=== PATIENT | female | born 1975 | race Caucasian/White ===

== ENCOUNTER 2019-01-16 17:16 | Emergency (ER) | payer SELFPAY ==
--- NOTE | 2019-01-16 20:59 | ED ---
Head Injury - HPI Summary HPI Summary: Patient is a 43 y/o female who presents to the ED s/p head injury. 5 days ago she fell backwards and hit the back of her head on a wall. Since then patient c/ o PEREA that radiates to her left shoulder, photophobia, difficulty concentrating, intermittent paresthesia of her extremities, neck pain, and neck swelling. Patient states her neck pain is worse with palpation and movement. She also c/o sinus congestion and drainage. Her current pain is rated a 2/10 in severity. She denies any prior hx of concussion. - History Of Current Complaint Chief Complaint: EDHeadInjury Stated Complaint: DISORIENTED/NECK FEELS SWOLLEN PER PT Time Seen by Provider: 01/16/19 17:31 Hx Obtained From: Patient Mechanism Of Injury: Other - fell backwards into wall Onset/Duration: Started Days Ago - 5, Still Present Severity Currently: Mild Pain Intensity: 2 Pain Scale Used: 0-10 Numeric Location: Discrete At: - back of head Aggravating Factor(s): Movement, Other: - palpation Associated Signs And Symptoms: Neck Pain, Swelling - neck, Visual Changes - photophobia - Allergies/Home Medications Allergies/Adverse Reactions: Allergies Allergy/AdvReac Type Severity Reaction Status Date / Time No Known Allergies Allergy Verified 01/16/19 17:30 PMH/Surg Hx/FS Hx/Imm Hx Endocrine/Hematology History: Denies: Hx Diabetes Cardiovascular History: Denies: Hx Hypertension - Cancer History Hx Chemotherapy: No Hx Radiation Therapy: No - Surgical History Surgery Procedure, Year, and Place: BREAST REDUCTION Infectious Disease History: No Infectious Disease History: Denies: Traveled Outside the [place] in Last 30 Days - Family History Known Family History: Positive: Cardiac Disease - [place], Other - breast [place] - Social History Alcohol Use: Rare Hx Substance Use: No Substance Use Type: Reports: None Hx Tobacco Use: No Smoking Status (MU): Never Smoked Tobacco Review of Systems Positive: Photophobia Positive: Other - sinus congestion/drainage Positive: Myalgia - neck pain, Edema - neck Neurological: Other - Difficulty focusing Positive: Headache - radiates to left shoulder, Paresthesia - intermittent, extremities All Other Systems Reviewed And Are Negative: Yes Physical Exam - Summary Physical Exam Summary: Constitutional: Well-developed, Well-nourished, Alert. (-) Distressed Skin: Warm, Dry HENT: Normocephalic; Atraumatic Eyes: Conjunctiva normal Neck: Musculoskeletal ROM normal neck. (-) JVD, (-) Stridor, (-) Tracheal deviation, (+) Tenderness to palpation of bilateral paraspinal neck muscles Cardio: Rhythm regular, rate normal, Heart sounds normal; Intact distal pulses; The pedal pulses are 2+ and symmetric. Radial pulses are 2+ and symmetric. (-) Murmur Pulmonary/Chest wall: Effort normal. (-) Respiratory distress, (-) Wheezes, (-) Rales Abd: Soft, (-) tenderness, (-) Distension, (-) Guarding, (-) Rebound Musculoskeletal: (-) Edema Lymph: (-) Cervical adenopathy Neuro: Alert, Oriented x3 Psych: Mood and affect Normal Triage Information Reviewed: Yes Vital Signs On Initial Exam: Initial Vitals Temp Pulse Resp BP Pulse Ox 99 F 74 16 172/100 100 01/16/19 17:27 01/16/19 17:27 01/16/19 17:27 01/16/19 17:27 01/16/19 17:27 Vital Signs Reviewed: Yes - [place] Coma Scale Best Eye Response: 4 - Spontaneous Best Motor Response: 6 - Obeys Commands Best Verbal Response: 5 - Oriented Coma Scale Total: 15 Diagnostics - Vital Signs Vital Signs Temp Pulse Resp BP Pulse Ox 01/16/19 19:25 98.4 F 62 16 149/93 100 01/16/19 17:27 99 F 74 16 172/100 100 - Laboratory Lab Statement: Any lab studies that have been ordered have been reviewed, and results considered in the medical decision making process. - CT Brain CT CT Interpretation Completed By: Radiologist Summary of CT Findings: No acute intracranial abnormality. ED physician reviewed radiology report. Head Injury Course/Dx Course Of Treatment: Patient is a 43 y/o female who presents to the ED s/p head injury 5 days ago. She c/o PEREA that radiates to her left shoulder, photophobia, difficulty concentrating, intermittent paresthesia of her extremities, neck pain , and neck swelling. A physical exam revealed tenderness to palpation of bilateral paraspinal neck muscles. GCS of 15. A brain CT was negative. Final dx are concussion and cervical strain. Patient is discharged and is agreeable with this plan. - Diagnoses Provider Diagnoses: Concussion, Cervical strain Discharge - Sign-Out/Discharge Documenting (check all that apply): Patient Departure - Discharge Patient Received Moderate/Deep Sedation with Procedure: No - Discharge Plan Condition: Stable Disposition: HOME Patient Education Materials: Cervical Strain (ED), Concussion (ED) Print Language: JAPANESE Referrals: Chrissy Rouse MD [Primary Care Provider] - - Billing Disposition and Condition Condition: STABLE Disposition: Home - Attestation Statements Document Initiated by Scribe: Yes Documenting Scribe: Disha Hilliard Provider For Whom Doyle is Documenting (Include Credential): Kenzie Whitehead MD Scribe Attestation: Disha Gu, scribed for Kenzie Barksdale MD on 01/16/19 at 2247. Scribe Documentation Reviewed: Yes Provider Attestation: The documentation as recorded by the scribeDisha accurately reflects the service I personally performed and the decisions made by me, Kenzie Whitehead MD Status of Scribe Document: Viewed
[2019-01-16 21:06] VITALS: BP 139/87
== END 2019-01-16 21:05 | disposition home or self-care (01) ==
LOC: ED 17:16
DX: S06.0X9A Concussion with loss of consciousness of unspecified duration, initial encounter (principal); S16.1XXA Strain of muscle, fascia and tendon at neck level, initial encounter; M54.2 Cervicalgia; R51 Headache; W19.XXXA Unspecified fall, initial encounter; Y92.9 Unspecified place or not applicable; H53.149 Visual discomfort, unspecified
CPT/HCPCS: 70450; 99282

== ENCOUNTER 2019-07-16 11:29 | Emergency (ER) | payer MEDICAID, OTHER ==
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
[2019-07-16] MEDS ORDERED: Acetaminophen TAB* 325 MG PO ONE (12:45)
[2019-07-16 13:50] VITALS: BP 142/93
== END 2019-07-16 14:03 | disposition home or self-care (01) ==
LOC: ED 11:29
DX: S16.1XXA Strain of muscle, fascia and tendon at neck level, initial encounter (principal); H53.8 Other visual disturbances; M54.2 Cervicalgia; M54.9 Dorsalgia, unspecified; V49.49XA Driver injured in collision with other motor vehicles in traffic accident, initial encounter; Y92.9 Unspecified place or not applicable
CPT/HCPCS: 70450; 72125; 72131; 99282; A9270-GY